=== PATIENT | female | born 1990 ===

== ENCOUNTER 2017-02-14 20:48 | Emergency (ER) | payer MEDICAID ==
[2017-02-14 21:10] VITALS: O2SAT 100
[2017-02-14 22:17] LABS: RBC URINE 1 /hpf (0-3); URINE BACTERIA MOD (<OCC); URINE BILIRUBIN NEGATIVE (NEGATIVE); URINE BLOOD NEGATIVE (NEGATIVE); URINE COLOR Yellow (YELLOW); URINE GLUCOSE (UA) NORMAL (Normal); URINE KETONE NEGATIVE (NEGATIVE); URINE LEUKOCYTE ESTERASE NEG Leu/uL (Negative); URINE PROTEIN NEGATIVE (NEGATIVE); URINE UROBILINOGEN NORMAL mg/dL (0.2-1.0); WBC URINE 1 /hpf (0-5)
[2017-02-14] MEDS ORDERED: Naproxen 550 mg Tab PO STA (22:21)
[2017-02-14] MEDS ORDERED: Naproxen 550 mg Tab PO ONE (22:34)
--- NOTE | 2017-02-14 23:55 | US ---
EXAM: US Pelvis Complete, Transabdominal US Pelvis, Transvaginal CLINICAL HISTORY: 26 years old, female; Pain; Pelvic pain TECHNIQUE: Real-time transabdominal and transvaginal pelvic ultrasound (complete) with image documentation. Transvaginal imaging was used for better evaluation of the endometrium and adnexa. COMPARISON: No relevant prior studies available. FINDINGS: Uterus/cervix: Unremarkable in echogenicity and size measuring 9.0 x 4.9 x 6.8 cm. Normal endometrial stripe thickness measuring 10.3 mm. No myometrial mass. Subtle calcifications within the endometrium, a nonspecific finding. Right ovary: Unremarkable in echogenicity and size measuring 61.8 x 0.9 x 1.5 cm. No mass. Normal blood flow. Left ovary: The left ovary contains a cyst within a cyst. The larger cyst measures 21 mm in greatest dimension, while the smaller cyst measures 4.4 mm in greatest dimension. Normal blood flow. Free fluid: No free fluid. Bladder: Unremarkable as visualized. Wall is normal thickness for degree of distention. IMPRESSION: Findings of a cyst within a cyst within the left ovary. This may be a normal finding, however in a premenopausal patient, ectopic must be excluded. Correlation with serum beta hCG is recommended.
--- NOTE | 2017-02-14 23:56 | C.PDOC ---
Time Seen by Provider: 02/14/17 21:43 Chief Complaint (Nursing): Abdominal Pain History Per: Patient Onset/Duration Of Symptoms: Days (4) Current Symptoms Are (Timing): Still Present Severity: Moderate Location Of Pain/Discomfort: Suprapubic Radiation Of Pain To:: None Quality Of Discomfort: "Pain" Associated Symptoms: Nausea, Urinary Symptoms Exacerbating Factors: Movement Alleviating Factors: None Additional History Per: Prior Records Abnormal Vaginal Bleeding: No Past Medical History Reviewed: Historical Data, Nursing Documentation, Vital Signs Vital Signs: Last Vital Signs Temp 98.4 F 02/14/17 21:07 Pulse 71 02/14/17 21:07 Resp 18 02/14/17 21:07 BP 118/83 02/14/17 21:07 Pulse Ox 100 02/14/17 23:56 - Medical History PMH: Migraine Surgical History: No Surg Hx Family History: States: Unknown Family Hx - Social History Hx Tobacco Use: No Hx Alcohol Use: Yes Hx Substance Use: No - Immunization History Hx Tetanus Toxoid Vaccination: No Hx Influenza Vaccination: Yes Hx Pneumococcal Vaccination: No Review Of Systems Except As Marked, All Systems Reviewed And Found Negative. Constitutional: Negative for: Fever, Weakness Cardiovascular: Negative for: Chest Pain Respiratory: Negative for: Shortness of Breath Gastrointestinal: Negative for: Vomiting, Diarrhea Genitourinary: Positive for: Frequency. Negative for: Vaginal Discharge, Vaginal Bleeding Musculoskeletal: Negative for: Neck Pain, Back Pain Skin: Negative for: Rash Neurological: Negative for: Weakness, Numbness, Seizures, Altered Mental Status Physical Exam - Physical Exam Appears: Non-toxic, No Acute Distress Skin: Normal Color, Warm, Dry, No Rash Head: Atraumatic, Normacephalic Eye(s): bilateral: PERRL, EOMI Neck: Normal ROM, Supple Cardiovascular: Rhythm Regular Respiratory: Normal Breath Sounds, No Accessory Muscle Use Gastrointestinal/Abdominal: Soft, Tenderness (suprapubic), No Guarding, No Rebound Back: No CVA Tenderness Extremity: Normal ROM Neurological/Psych: Oriented x3, Normal Motor, Normal Sensation ED Course And Treatment - Laboratory Results Result Diagrams: 02/15/17 00:07 Urine POC: Negative O2 Sat by Pulse Oximetry: 100 Pulse Ox Interpretation: Normal - CT Scan/US Pelvic US Other Rad Studies (CT/US): Read By Radiologist, Radiology Report Reviewed CT/US Interpretation: IMPRESSION: Findings of a cyst within a cyst within the left ovary. This may be a normal. finding, however in a premenopausal patient, ectopic must be. excluded. Correlation with serum beta hCG is recommended. Reassessment Condition: Improved Disposition Counseled Patient/Family Regarding: Studies Performed, Diagnosis, Need For Followup, Rx Given - Disposition Disposition: HOME/ ROUTINE Disposition Time: 01:05 Condition: IMPROVED Additional Instructions: Drink plenty of fluids. 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 Return to the ER if you develop fever, vomiting, dizziness, vaginal bleeding or discharge, worsening of symptoms or if you have any other concerns. Prescriptions: Naproxen [Naprosyn] 1 tab PO BID PRN #20 tab PRN Reason: Pain Sulfamethoxazole/Trimethoprim [Bactrim DS 800 mg-160 mg] 1 tab PO BID #10 tab Instructions: Ovarian Cyst (ED) - Clinical Impression Clinical Impression: Cyst of left ovary, Urinary frequency
[2017-02-15 00:18] LABS: BASO % 0.3 % (0.0-2.0); EOS # 0.1 K/uL (0.0-0.7); EOS % 0.8 % (0.0-4.0); HEMATOCRIT 39.2 % (34.0-47.0); LYMPH # 2.6 K/uL (1.0-4.3); MEAN CELL VOLUME 92.8 fL (81.0-99.0); MEAN CORPUSCULAR HEMOGLOBIN 31.4 pg (27.0-31.0); MEAN CORPUSCULAR HGB CONC 33.8 g/dL (33.0-37.0); MEAN PLATELET VOLUME 8.9 fL (7.2-11.7); MONO % 10.7 % (0.0-10.0); WHITE BLOOD COUNT 9.7 K/uL (4.8-10.8)
[2017-02-15 01:22] VITALS: BP 116/78; PULSE 74; RESP 20; TEMP 98.2
== END 2017-02-15 01:22 | disposition home or self-care (01) ==
LOC: C.ER 20:48
DX: N83.202 Unspecified ovarian cyst, left side (principal); R35.0 Frequency of micturition

== ENCOUNTER 2017-06-16 17:50 | Emergency (ER) | payer SELFPAY ==
[2017-06-16 18:07] VITALS: TEMP 98.5
--- NOTE | 2017-06-16 19:48 | C.PDOC ---
History Of Present Illness Patient presents to the ED for evaluation of left lower quadrant abdominal pain which began earlier today. Patient states she lifted a heavy vacuum at work, heard a "pop" around her left lower quadrant and has been having pain to the area since then. She describes the pain as sharp and cramping in nature. She took Tylenol HEAT TREATER with minimal relief. Otherwise, she denies nausea, vomiting, back pain, or direct injury/trauma to the affected area. Time Seen by Provider: 06/16/17 19:47 Chief Complaint (Nursing): Abdominal Pain History Per: Patient History/Exam Limitations: no limitations Onset/Duration Of Symptoms: Hrs Current Symptoms Are (Timing): Still Present Severity: Mild Pain Scale Rating Of: 3 Location Of Pain/Discomfort: LLQ Radiation Of Pain To:: None Quality Of Discomfort: Sharp, Cramping, "Pain" Associated Symptoms: denies: Nausea, Vomiting, Back Pain Exacerbating Factors: None Alleviating Factors: OTC Meds (Tylenol ) Last Bowel Movement: Today Recent travel outside of the [place]: No Additional History Per: Patient Abnormal Vaginal Bleeding: No Past Medical History Reviewed: Historical Data, Nursing Documentation, Vital Signs Vital Signs: Last Vital Signs Temp 98.5 F 06/16/17 18:03 Pulse 95 H 06/16/17 22:47 Resp 16 06/16/17 22:47 BP 118/63 06/16/17 22:47 Pulse Ox 99 06/16/17 23:23 - Medical History PMH: Migraine Surgical History: No Surg Hx Family History: States: Unknown Family Hx - Social History Hx Tobacco Use: No Hx Alcohol Use: Yes Hx Substance Use: No - Immunization History Hx Tetanus Toxoid Vaccination: No Hx Influenza Vaccination: Yes Hx Pneumococcal Vaccination: No Review Of Systems Constitutional: Negative for: Fever, Chills Cardiovascular: Negative for: Chest Pain Gastrointestinal: Positive for: Abdominal Pain (left lower quadrant ). Negative for: Nausea, Vomiting Musculoskeletal: Negative for: Back Pain Neurological: Negative for: Weakness, Numbness Physical Exam - Physical Exam Appears: Non-toxic, No Acute Distress Skin: Warm, Dry Head: Normacephalic Eye(s): bilateral: Normal Inspection Oral Mucosa: Moist Neck: Supple Respiratory: No Rales, No Rhonchi, No Wheezing Gastrointestinal/Abdominal: Bowel Sounds (unremarkable ), Tenderness (diffuse, to left lower quadrant. non-radiating ), No Guarding, No Rebound Back: No Vertebral Tenderness, No Paraspinal Tenderness Extremity: Normal ROM, Capillary Refill (less than 2 seconds ) Extremity: Bilateral: Atraumatic Neurological/Psych: Oriented x3, Normal Speech, Normal Cognition Gait: Steady ED Course And Treatment - Laboratory Results Result Diagrams: 06/16/17 20:14 06/16/17 20:14 O2 Sat by Pulse Oximetry: 99 (on RA) Pulse Ox Interpretation: Normal - CT Scan/US US Transabdominal, Other Rad Studies (CT/US): Read By Radiologist CT/US Interpretation: EXAM: US First Trimester, Transabdominal. CLINICAL HISTORY: 26 years old, female; Pain; Pelvic pain; Additional info: Left lq pain, sudden onset. TECHNIQUE: Real-time transabdominal obstetrical ultrasound of the maternal pelvis and a first trimester. with image documentation. COMPARISON: No relevant prior studies available. FINDINGS: Gestation: No intrauterine gestational sac. Uterus/cervix: Endometrium: 1.6 cm in thickness. Closed cervix. Nabothian cysts. Ovaries: RIGHT ovary: Probable 2.1 x 1.5 x 2.1 cm corpus luteal cyst. LEFT ovary: Normal. No. adnexal masses. Free fluid: Trace free fluid within pelvis. IMPRESSION: 1. No intrauterine gestation. DDX: Early IUP, missed , ectopic . . EXAM: US , Transvaginal. 26 years old, female; Pain; Pelvic pain; Additional info: Left lq pain, sudden onset. TECHNIQUE: Real-time transvaginal obstetrical ultrasound of the maternal pelvis and a first trimester . with image documentation. Transvaginal imaging was used for better evaluation of the fetus and. adnexa. COMPARISON: No relevant prior studies available. FINDINGS: Gestation: No intrauterine gestational sac. Uterus/cervix: Endometrium: 1.6 cm in thickness. Closed cervix. Nabothian cysts. Ovaries: RIGHT ovary: Probable 2.1 x 1.5 x 2.1 cm corpus luteal cyst. LEFT ovary: Normal. No. adnexal masses. Free fluid: Trace free fluid within pelvis. IMPRESSION: 1. No intrauterine gestation. DDX: Early IUP, missed , ectopic . spoke with dr perez (senior system operator) needs repeat hcg in 48 hours Progress Note: labs ordered and reviewed. Patient received IV fluids. Reevaluation Time: 23:34 Reassessment Condition: Improved Disposition Counseled Patient/Family Regarding: Studies Performed, Diagnosis, Need For Followup - Disposition Referrals: [facility] [Outside] [facility] [Outside] Disposition: HOME/ ROUTINE Disposition Time: 19:47 Condition: FAIR Additional Instructions: Please follow up with your senior system operator in 48 hours for repeat hcg levels, or return here for same Instructions: Threatened Miscarriage (ED) Forms: [employer] ([place]) - Clinical Impression Clinical Impression: Abdominal pain, Missed - Scribe Statement The provider has reviewed the documentation as recorded by the Scribe (Em Velazquez) Provider Attestation: All medical record entries made by the Scribe were at my direction and personally dictated by me. I have reviewed the chart and agree that the record accurately reflects my personal performance of the history, physical exam, medical decision making, and the department course for this patient. I have also personally directed, reviewed, and agree with the discharge instructions and disposition.
[2017-06-16] MEDS ORDERED: Sodium Chloride 0.9% 1,000 ML IV ONE (19:58)
[2017-06-16] MEDS ORDERED: Sodium Chloride 0.9% 1,000 ML ONE (20:18)
[2017-06-16 20:21] LABS: BASO # 0.1 K/uL (0.0-0.2); BASO % 0.6 % (0.0-2.0); EOS # 0.1 K/uL (0.0-0.7); EOS % 0.7 % (0.0-4.0); HEMATOCRIT 37.3 % (34.0-47.0); LYMPH # 2.4 K/uL (1.0-4.3); LYMPH % 24.3 % (20.0-40.0); MEAN CELL VOLUME 92.5 fL (81.0-99.0); MEAN CORPUSCULAR HEMOGLOBIN 31.7 pg (27.0-31.0); MEAN CORPUSCULAR HGB CONC 34.3 g/dL (33.0-37.0); MEAN PLATELET VOLUME 9.1 fL (7.2-11.7); MONO # 0.9 K/uL (0.0-0.8); MONO % 9.5 % (0.0-10.0); RED CELL DISTRIBUTION WIDTH 12.4 % (11.5-14.5); WHITE BLOOD COUNT 9.8 K/uL (4.8-10.8)
[2017-06-16 20:34] LABS: ALB/GLOB RATIO 1.2 (1.0-2.1); ALKALINE PHOSPHATASE 53 U/L (38-126); ALT/SGPT 29 U/L (9-52); AST/SGOT 23 U/L (14-36); BILIRUBIN,TOTAL 0.3 mg/dL (0.2-1.3); BLOOD UREA NITROGEN 12 mg/dL (7-17); CALCIUM 8.9 mg/dl (8.6-10.4); CARBON DIOXIDE 24 mmol/L (22-30); CHLORIDE 102 mmol/L (98-107); GFR AFRICAN-AMERICAN > 60; GLUCOSE,RANDOM 72 mg/dL (65-105); RBC URINE 3 /hpf (0-3); SODIUM 138 mmol/L (132-148); TOTAL PROTEIN 6.8 g/dL (6.3-8.3); URINE BACTERIA RARE (<OCC); URINE BILIRUBIN NEGATIVE (NEGATIVE); URINE BLOOD NEGATIVE (NEGATIVE); URINE COLOR Amber (YELLOW); URINE GLUCOSE (UA) NORMAL (Normal); URINE KETONE NEGATIVE (NEGATIVE); URINE LEUKOCYTE ESTERASE NEG Leu/uL (Negative); URINE PROTEIN NEGATIVE (NEGATIVE); URINE UROBILINOGEN NORMAL mg/dL (0.2-1.0); WBC URINE 3 /hpf (0-5)
[2017-06-16 23:51] VITALS: BP 108/63; PULSE 94; RESP 18; O2SAT 98
--- NOTE | 2017-06-17 09:24 | US ---
HISTORY: left lq pain, sudden onset COMPARISON: None available. TECHNIQUE: Transabdominal and transvaginal FINDINGS: UTERUS: Measures 9.4 x 5.6 x 6.7 cm. No uterine mass. ENDOMETRIUM: Measures 16 mm in diameter. No intrauterine gestation identified. CERVIX: No cervical abnormality identified. RIGHT OVARY: Measures 3.1 x 1.9 x 3.1 cm. No solid mass. Normal flow. Probable corpus luteum, 2.1 cm. LEFT OVARY: Measures 3.0 x 2.0 x 2.4 cm. No solid mass. Normal flow. FREE FLUID: Small amount of fluid in cul-de-sac. OTHER FINDINGS: None. IMPRESSION: No intrauterine gestation. Thickened endometrium. Small amount of fluid in cul-de-sac, nonspecific. Right ovarian corpus luteum. No evidence of ovarian torsion.
== END 2017-06-16 23:51 | disposition home or self-care (01) ==
LOC: C.ER 17:50
DX: O02.1 Missed abortion (principal); R10.32 Left lower quadrant pain
CPT/HCPCS: 76830; 76856; 80053; 81001; 83690; 84702; 84703; 85025; 96360; 99285; J7040